=== PATIENT | male | born 2005 | race Caucasian/White ===

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

== ENCOUNTER 2023-07-03 02:07 | Emergency (ER) | payer OTHER, SELFPAY ==
[2023-07-03 02:08] VITALS: BP 111/98; PULSE 94; RESP 16; TEMP 36; O2SAT 100; BMI 21.1
--- NOTE | 2023-07-03 02:57 | EDS_ITS ---
HPI History of Present Illness Chief Complaint: ETOH Intox Informant: patient Narrative Narrative: Patient is a 18-year-old male from the [facility]. He has a past medical history of anxiety and depression and takes alprazolam daily. Patient states he took his medication as directed today but this evening was at a constitution party when he drank something from a glass that was handed to him. He states he is unsure of how much he drank but following this developed bouts of nausea and vomiting and became very anxious and called 911 to bring him in for evaluation. [facility] Medical History (Updated 07/03/23 @ 03:[address] Robin Addison, DO) Anxiety Depressed Home Medications ondansetron 4 mg disintegrating tablet 4 mg PO TID PRN nausea and vomiting #21 tabs 07/03/23 [Rx Last Taken Unknown] Allergy/AdvReac Type Severity Reaction Status Date / Time No Known Allergies Allergy Verified 07/03/23 02:11 Social History Smoking Status: Never smoker ROS ROS ED Constitutional Constitutional ED: Denies chills or fever(s) Eyes Eyes: Denies change in vision ENT ENT ED: Denies sore throat Cardiovascular Cardiovascular: Denies chest pain Respiratory/Chest Respiratory/Chest: Denies cough or dyspnea Gastrointestinal Gastrointestinal: Reports nausea and vomiting; Denies abdominal pain or diarrhea Genitourinary Genitourinary ED: Denies dysuria Musculoskeletal Musculoskeletal: Denies myalgias Integumentary Denies rash Neurologic Neurologic: Denies headache(s) Psychiatric Psychiatric: Reports anxiety Hematologic/Lymphatic Hematologic/Lymphatic: Denies easy bleeding or easy bruising EXAM Physical Exam Const Vital Signs: 07/03/23 02:08 07/03/23 02:08 Temperature 96.8 F L Temperature Source Temporal Pulse Rate 94 Respiratory Rate 16 Blood Pressure 111/98 H Blood Pressure Mean 102 Pulse Ox 100 Oxygen Delivery Method Room Air Positive well nourished and well developed General Appearance ED: well developed HEENT Reports moist mucous membranes HEENT Narrative: No tongue or lip biting to suggest seizure activity No signs of infection in the posterior pharynx No airway edema or compromise Eyes EOMs intact bilaterally Eyes Narrative: Pupils are dilated and sluggish to respond to light with scleral injection consistent with alcohol ingestion General Eye ED: Negative for scleral icterus Neck supple Neck Narrative: No nuchal rigidity or meningeal signs noted Resp normal respiratory effort and clear to auscultation bilaterally Resp Narrative: No nasal flaring retractions tachypnea or accessory muscle use No signs of respiratory distress Cardio regular rate and regular rhythm GI non-tender and non-distended GI Narrative: Abdomen is soft nontender nondistended with hyperactive bowel sounds. No voluntary guarding or rigidity. No pulsatile mass Auscultation: hyperactive bowel sounds Palpation: soft Extremity normal to inspection Neuro oriented x3, CN's II-XII intact bilaterally and no sensory deficits noted Sensorium / Orientation: alert Psych Psych Narrative: Patient has a nervous/anxious affect Skin no rashes or lesions noted General Skin Exam: Negative for jaundice MDM MDM MDM Narrative Medical decision making narrative: Patient presented to the ER with stable vitals. He had no physical exam findings concerning for underlying injury and therefore I felt no need for imaging or laboratory studies. He is awake and alert he is in no respiratory distress lungs are clear his pulse ox is 100% on room air and my concern for aspiration is low. Therefore there is no need for chest x-ray. He reported drinking something out of a glass earlier this evening which was most likely alcohol in nature. This coupled with the fact he takes alprazolam which binds to the same receptors alcohol will lead to worsening symptoms from it such as depressed mental status or bouts of nausea and vomiting. His physical exam does not suggest any type of underlying gastrointestinal pathology such as appendicitis pancreatitis or biliary colic and therefore there is no need for laboratory test. Upon my evaluation of the patient he is awake he is alert he is oriented he has no signs of respiratory distress. He was given water and is able to tolerate an oral challenge. Therefore this time I do not feel there is necessarily need for testing for potential coingestions as it would not change treatment options at this time as vitals are stable patient has no signs of respiratory distress and mental status is normal. Therefore this time patient be given Zofran to help control any further bouts of nausea and vomiting but as he is awake alert and oriented in no respiratory distress with stable vitals and can tolerate an oral challenge he can be discharged back to his dorm History & Record Review Discussion w/independent historian: EMS personnel and Patient Discharge Plan Triage Chief Complaint: ETOH Intox ED Provider: Robin Addison Dx/Rx/DC Orders Clinical Impression: Alcohol intoxication, Nausea & vomiting, History of anxiety Instructions: ED Alcohol Intoxication Prescriptions: New ondansetron 4 mg tablet,disintegrating 4 mg PO TID PRN (Reason: nausea and vomiting) Qty: 21 0RF Primary Care Provider: Eduardo Taylor Referrals: NOT,DEFINED [Non-Staff] - Activity Restrictions/Additional Instructions: Use the Zofran as directed to control any further bouts of nausea or vomiting. Keep yourself well-hydrated. Please refrain from drinking alcohol with your alprazolam Disposition Disposition: Home, Self Care
[2023-07-03] MEDS: Ondansetron ODT 4 MG Tablet PO (03:08)
--- NOTE | 2023-07-03 03:14 | ED.RN ---
Pt up for discharge, [facility] center notified and they state he is cleared to go back to his dorm. Pt educated that he can call or go to wellness center if he needs anything.
[2023-07-03 03:18] VITALS: BP 117/70; PULSE 78; RESP 16; RESP 18
== END 2023-07-03 03:23 | disposition home or self-care (01) ==
PROVIDERS: Emergency Provider Emergency Medicine; PCP Family Medicine; Visit Provider Emergency Medicine
DX: F10.129 Alcohol abuse with intoxication, unspecified (principal); R11.2 Nausea with vomiting, unspecified; F41.9 Anxiety disorder, unspecified; Z79.899 Other long term (current) drug therapy
CPT/HCPCS: 99284

== ENCOUNTER 2023-07-16 16:22 | Emergency (ER) | payer OTHER, SELFPAY ==
[2023-07-16 16:23] VITALS: BP 119/83; PULSE 78; RESP 16; TEMP 36.6; O2SAT 99; BMI 21.2
--- NOTE | 2023-07-16 18:39 | EDS_ITS ---
HPI History of Present Illness Chief Complaint: Abscess Narrative Narrative: Patient is a 18-year-old male with no significant history presents to the emergency department for a lump, red painful area to his upper right buttock. Patient denies any drainage. Concerned he has a pilonidal cyst. He did consult with his mother who is a flute teacher in [place] and she told him to come to the emergency department. Patient denies any other injury [facility] Medical History (Updated 07/16/23 @ 18:45 by MELITA Castañeda) Anxiety Depressed Home Medications ondansetron 4 mg disintegrating tablet 4 mg PO TID PRN nausea and vomiting #21 tabs 07/03/23 [Rx Last Taken Unknown] cephalexin 500 mg capsule 500 mg PO Q6 #40 CAPSULES 07/16/23 [Rx Last Taken Unknown] ibuprofen 600 mg tablet 600 mg PO Q8H PRN PRN pain #20 TABLETS 07/16/23 [Rx Last Taken Unknown] sulfamethoxazole 800 mg-trimethoprim 160 mg tablet (Bactrim DS) 1 tab PO BID #20 tabs 07/16/23 [Rx Last Taken Unknown] Allergy/AdvReac Type Severity Reaction Status Date / Time No Known Allergies Allergy Verified 07/16/23 16:23 Social History Smoking Status: Never smoker ROS ROS ED ROS Narrative Constitutional: Negative for fever, chills, weight loss, weakness Eyes: Negative for vision loss, vision change, double vision ENT: Negative for any sore throat, ear pain, congestion Cardiovascular: Negative for any chest pain, tightness, palpitations Respiratory: Negative for any cough, sputum production, hemoptysis, dyspnea, dyspnea on exertion, orthopnea Gastrointestinal: Negative for any abdominal pain, nausea, vomiting, diarrhea, constipation, blood in stool, blood in vomit : Negative for any urinary frequency, dysuria, retention, blood in urine Muscle skeletal: Negative for any muscle joint pain, stiffness, myalgias, arthralgias, neck pain, back pain Neurological: Negative for any headache, syncope, numbness or tingling, dizziness Skin: Negative for any rashes, lumps, itching, abrasions, lacerations. Positive for abscess to the right upper buttock Psychiatric: Negative for any depression, anxiety, stress, suicidal ideation, homicidal ideation Hematologic: Negative for any easy bruising, excessive bruising, easy bleeding Allergies: Negative for any eczema, hives, rash EXAM Physical Exam Narrative Exam Narrative: Vital signs reviewed. HEET: Head normocephalic atraumatic, TMs clear bilaterally. Posterior pharynx is clear, moist mucous membranes. Nares clear bilaterally. Neck: Supple with no lymphadenopathy or tenderness. No signs of meningismus, negative jolt sign. Cardiac: Regular rate and rhythm no murmurs gallops or rubs, equal peripheral pulses bilaterally. Respiratory: Lungs clear to auscultation bilaterally. No chest tenderness. Abdomen: Soft, nontender, nondistended. No abdominal bruit or pulsatile masses. No hepatosplenomegaly Extremities: No peripheral edema, no signs of gross trauma or deformity. Active full range of motion of all extremities. Neuro: Cranial nerves II through XII intact, no focal neurological deficits. Skin: Clean dry and intact with no rash, purpura, petechiae, vesicles or pustules. Patient has a pilonidal cyst to the right upper buttock, this is not around the rectum. Patient has minimal pain, there is slight redness. Backs/flank: No CVA tenderness, no midline spinal tenderness, no deformity. Psych: Normal mood and affect. No SI, HI or acute psychosis. Const Vital Signs: 07/16/23 16:23 Temperature 97.8 F Temperature Source Temporal Pulse Rate 78 Respiratory Rate 16 Blood Pressure 119/83 H Blood Pressure Mean 95 Pulse Ox 99 Oxygen Delivery Method Room Air Positive well nourished and well developed General Appearance ED: well developed MDM MDM Treatment and Re-Evaluation :: Patient appears generally well, patient appears nontoxic, vital signs are stable. Patient presents to the emergency department with concern of a pilonidal cyst on the right upper buttock. Physical examination is consistent with pilonidal cyst. This area was cleansed with alcohol. Injected with lidocaine 3 mL. I was able to place a 1 cm vertical incision, initially yellow drainage was expelled. It was indurated. I was able to use forceps and break up loculations. Patient tolerated well. This area was then dressed. Patient placed on Bactrim, Keflex. He is instructed to take these antibiotics as prescribed. He will return here for any worsening redness pain or swelling. Patient will continue to use sitz bath, warm compress. Patient stable for discharge Discharge Plan Triage Chief Complaint: Abscess ED Midlevel Provider: Tony Drew ED Provider: Tony Cadet Dx/Rx/DC Orders Clinical Impression: Cyst, pilonidal, with abscess Instructions: ED Abscess Incision And Drainage Prescriptions: New cephalexin 500 mg capsule 500 mg PO Q6 Qty: 40 0RF sulfamethoxazole-trimethoprim [Bactrim DS] 800-160 mg tablet 1 tab PO BID Qty: 20 0RF ibuprofen 600 mg tablet 600 mg PO Q8H PRN PRN (Reason: pain) Qty: 20 0RF No Action ondansetron 4 mg tablet,disintegrating 4 mg PO TID PRN (Reason: nausea and vomiting) Qty: 21 0RF Primary Care Provider: Eduardo Taylor Referrals: Eduardo Taylor MD [Primary Care Provider] - Activity Restrictions/Additional Instructions: Use warm compresses. Take the antibiotics until finished. Do not drink alcohol while on these antibiotics. Return for worsening redness, inflammation, pain. Disposition Disposition: Home, Self Care
[2023-07-16] MEDS: Smz/Tmp Ds Tablet 1 TABLET PO (18:48)
[2023-07-16] MEDS: Cephalexin 250 MG Capsule 500 MG PO (18:48)
== END 2023-07-16 19:27 | disposition home or self-care (01) ==
PROVIDERS: Emergency Provider Emergency Medicine; PCP Family Medicine; Visit Provider Emergency Medicine
DX: L05.01 Pilonidal cyst with abscess (principal)
CPT/HCPCS: 10080; 99283

== ENCOUNTER 2023-10-13 07:17 | Emergency (ER) | payer OTHER, SELFPAY ==
[2023-10-13 07:18] VITALS: BP 116/82; PULSE 69; RESP 14; TEMP 36.8; O2SAT 100; BMI 20.5
--- NOTE | 2023-10-13 07:28 | EX.ED.VIS.EY ---
HPI History of Present Illness Chief Complaint: Eye Problem Informant: patient Onset/Context/Timing Location: Left Eye Onset: Yesterday Context: Gradual Onset Timing: Continuous Worsened by: Wearing contact lenses Relieved by: Nothing Associated Symptoms Associated Symptoms - Eyes: Eyelid swelling, Itching, Pain and Redness; Negative for Burning, Crusting, Drainage, Foreign body sensation, Matting or Photophobia Visual Changes: left: Blurred vision History of injury: Yes Visual correction: Glasses and Corrective contact lenses Narrative Narrative: Patient presents with redness and swelling to his left upper eyelid that began yesterday. Patient states it has gotten progressively worse. Patient admits to some subjective fevers this morning. Patient denies any discharge or drainage from the eye. Patient states he normally wears contact lenses but states that this makes his pain worse. Patient admits to some blurred vision from his left eye. Patient denies any loss of vision. Patient denies any trauma or injury. Prior similar symptoms: No PFSH PFSH Medical History Anxiety Depressed Home Medications ondansetron 4 mg disintegrating tablet 4 mg PO TID PRN nausea and vomiting #21 tabs 07/03/23 [Rx Last Taken Unknown] cephalexin 500 mg capsule 500 mg PO Q6 #40 CAPSULES 07/16/23 [Rx Last Taken Unknown] ibuprofen 600 mg tablet 600 mg PO Q8H PRN PRN pain #20 TABLETS 07/16/23 [Rx Last Taken Unknown] sulfamethoxazole 800 mg-trimethoprim 160 mg tablet (Bactrim DS) 1 tab PO BID #20 tabs 07/16/23 [Rx Last Taken Unknown] Allergy/AdvReac Type Severity Reaction Status Date / Time No Known Allergies Allergy Verified 07/16/23 16:23 no surgical history Social History Smoking Status: Never smoker ROS ROS ED Constitutional Constitutional ED: Reports fever(s) and subjective; Denies chills Eyes Eyes: Reports blurry vision; Denies diplopia ENT ENT ED: Reports sore throat; Denies rhinorrhea Cardiovascular Cardiovascular: Denies chest pain or palpitations Respiratory/Chest Respiratory/Chest: Denies cough or dyspnea Gastrointestinal Gastrointestinal: Denies nausea or vomiting Genitourinary Genitourinary ED: Denies dysuria or hematuria Musculoskeletal Musculoskeletal: Denies back pain or neck pain Integumentary Denies abscess or rash Neurologic Neurologic: Reports headache(s); Denies weakness Allergic/Immunologic Allergic/Immunologic ED: Denies mouth swelling or urticaria EXAM Physical Exam Const Vital Signs: 10/13/23 07:18 Temperature 98.2 F Temperature Source Temporal Pulse Rate 69 Respiratory Rate 14 Blood Pressure 116/82 H Blood Pressure Mean 93 Pulse Ox 100 Oxygen Delivery Method Room Air Positive well nourished and well developed General Appearance ED: well developed and NAD Eyes Eyes Narrative: Pupils are equal, round, and reactive to light bilaterally. Extraocular muscles are intact. Conjunctiva is clear. There is some edema and tenderness over the left upper eyelid. There are some mild erythema. There is a small pustule noted along the lid margin. There is no discharge or drainage noted. Neck supple and no JVD Neuro oriented x3, CN's II-XII intact bilaterally, moves all extremities and no sensory deficits noted Sensorium / Orientation: alert Motor Exam: strength 5/5 throughout Skin no wounds MDM MDM MDM Narrative Medical decision making narrative: Patient was advised that this is a hordeolum of his left upper eyelid. Patient was instructed to use warm compresses to the area. Patient was given a prescription for erythromycin ophthalmic ointment. Patient was instructed to follow-up with his primary care physician in 3 to 5 days. Patient was instructed to return if worse in any way. Patient understood and was agreeable with the plan. All questions were answered. Discharge Plan Triage Chief Complaint: Eye Problem ED Provider: Pedro López Dx/Rx/DC Orders Clinical Impression: Hordeolum of left upper eyelid Instructions: ED Stye Prescriptions: No Action ondansetron 4 mg tablet,disintegrating 4 mg PO TID PRN (Reason: nausea and vomiting) Qty: 21 0RF cephalexin 500 mg capsule 500 mg PO Q6 Qty: 40 0RF sulfamethoxazole-trimethoprim [Bactrim DS] 800-160 mg tablet 1 tab PO BID Qty: 20 0RF ibuprofen 600 mg tablet 600 mg PO Q8H PRN PRN (Reason: pain) Qty: 20 0RF Primary Care Provider: Eduardo Taylor Referrals: Eduardo Taylor MD [Primary Care Provider] - 3-5 Days Disposition Disposition: Home, Self Care
[2023-10-13] MEDS: Erythromycin Ophthalmic (NSY) 1 GM OPTH.TUBE 1 APPLIC LEFT EYE (07:58)
== END 2023-10-13 08:07 | disposition home or self-care (01) ==
LOC: ED 07:54
PROVIDERS: Emergency Provider Emergency Medicine; PCP Family Medicine; Visit Provider Emergency Medicine
DX: H00.014 Hordeolum externum left upper eyelid (principal)
CPT/HCPCS: 99282